=== PATIENT | female | born 1950 | race Caucasian/White ===

== ENCOUNTER 2017-04-29 14:09 | Emergency (ER) | payer OTHER ==
[~2017-04-29] VITALS: Ht 152.4 cm; Wt 73.0 kg
[2017-04-29] MEDS ORDERED: IBUP-1636 PO (14:57)
[2017-04-29] MEDS ORDERED: KETOROLAC 60MG/2ML VIAL IM ONE (18:45)
[2017-04-29 19:38] VITALS: BP 137/65
== END 2017-04-29 21:17 | disposition home or self-care (01) ==
LOC: ER 14:09
DX: M17.0 Bilateral primary osteoarthritis of knee (principal)
CPT/HCPCS: 73562; 96372; 99284; J1885

== ENCOUNTER 2022-01-25 05:12 | Emergency (ER) | payer OTHER, MEDICAID ==
[~2022-01-25] VITALS: Ht 152.4 cm; Wt 78.6 kg
[~2022-01-25 05:12] MED LIST: IBUP-1636 PO
[2022-01-25] MEDS ORDERED: ASPIRIN 81MG TABLET PO ONE (08:30)
[2022-01-25 08:51] LABS: EOSINOPHILS % 0.6 % (0.0-5.0); HEMATOCRIT. 39.3 % (36.0-48.0); HEMOGLOBIN. 13.5 g/dL (12.0-16.0); LYMPHOCYTES % 14.8 % (20.0-50.0); MEAN CORPUSCULAR HEMOGLOBIN 30.1 pg (28.0-32.0); MEAN CORPUSCULAR VOLUME 87.8 fL (81.0-99.0); MEAN PLATELET VOLUME 9.1 fl (7.4-10.4); MONOCYTES % 2.5 % (2.0-8.0); NEUTROPHILS % 81.1 % (40.0-76.0); PLATELET 275 x1000/uL (130-400); RED BLOOD CELL COUNT 4.48 mill/uL (4.2-5.4); RED CELL DISTRIBUTION WIDTH 12.7 % (11.6-14.6)
[2022-01-25 08:55] LABS: CHLORIDE 104 mEq/L (98-107)
[2022-01-25 18:02] VITALS: BP 124/65
== END 2022-01-25 18:19 | disposition short-term general hospital (02) ==
LOC: ER 05:12
DX: R07.89 Other chest pain (principal); Z20.822 Contact with and (suspected) exposure to COVID-19
CPT/HCPCS: 36415; 71045; 80053; 83605; 83880; 84484; 85025; 87426; 93005; 99285; C9803